=== PATIENT | female | born 1970 | race Caucasian/White ===

== ENCOUNTER 2018-05-04 05:27 | Emergency (ER) | payer BC ==
[~2018-05-04] VITALS: Ht 152.4 cm; Wt 60.6 kg
[2018-05-04 05:30] VITALS: BP 127/85
--- NOTE | 2018-05-04 05:35 | NUR ---
Pt taken to bed 12.
--- NOTE | 2018-05-04 05:36 | NUR ---
PT PRESENTED ER WITH C/O PAIN TO THE ABDOMEN X 2 WEEKS. PT DENIES FEVER BUT HAS SOME N/V. NO PAIN TO PALPATION. ACTIVE BOWL SOUNDS IN ALL 4 Q. NO MEDICAL HX AND KNA.SKIN IS PINK/WARM/DRY; AAOX4 . PATIENT STATES PAIN OF 8/10 AT THIS TIME; VSS; PATIENT POSITIONED FOR COMFORT; HOB ELEVATED; BEDRAILS UP X2; BED DOWN. ER MD MADE AWARE OF PT STATUS.
[2018-05-04] MEDS ORDERED: PROCHLORPERAZINE 10 MG/2 ML VIAL IM ONE (06:10)
[2018-05-04] MEDS ORDERED: diphenhydrAMINE 50 MG/ML VIAL IM ONE (06:10)
--- NOTE | 2018-05-04 06:55 | NUR ---
PT SITTING UP IN BED, VITALS STABLE.
--- NOTE | 2018-05-04 07:15 | NUR ---
RECEIVED REPORT FROM ZACH JOHNSON.
[2018-05-04 07:36] VITALS: BP 118/76
--- NOTE | 2018-05-04 07:36 | NUR ---
Patient discharged with v/s stable. Written and verbal after care instructions given and explained. Patient alert, oriented and verbalized understanding of instructions. Ambulatory with steady gait. All questions addressed prior to discharge. ID band removed. Patient advised to follow up with PMD. Rx of MACROBID, MINERAL OIL, ZOFRAN & TRAMADOL given. Patient educated on indication of medication including possible reaction and side effects. Opportunity to ask questions provided and answered.
== END 2018-05-04 07:36 | disposition home or self-care (01) ==
LOC: MED 05:27
DX: K59.00 Constipation, unspecified (principal); R51 Headache; N39.0 Urinary tract infection, site not specified
CPT/HCPCS: 74022; 81025; 96372; 99284; J0780; J1200

== ENCOUNTER 2022-06-23 15:23 | Emergency (ER) | payer BC ==
[~2022-06-23] VITALS: Ht 147.3 cm; Wt 59.4 kg
[2022-06-23 15:39] VITALS: BP 155/90
--- NOTE | 2022-06-23 15:41 | NUR ---
Patient ambulated to bed 5.
--- NOTE | 2022-06-23 15:56 | NUR ---
Dr. Lu evaluating patient at bedside.
[2022-06-23] MEDS ORDERED: MECLIZINE 25 MG TAB PO ONE (16:05)
[2022-06-23] MEDS ORDERED: NACL 0.9% 1,000 ML IV ONE (16:05)
--- NOTE | 2022-06-23 16:15 | NUR ---
52 y/o female bib self with c/o dizziness, nausea and vomiting x 2 days. Per patient, she has been having the dizziness for 6 months intermittently. Patient states there was an increase in dizziness and nausea over the past 2 days. Denies any sick contacts, fever, chills or SOB. Denies pain. Denies taking any medication for symptoms. Medical History: Pre-Diabetes, HDL NKDA
--- NOTE | 2022-06-23 16:23 | NUR ---
IV started, blood work obtained, handed blood samples to CPT. Ludmila
[2022-06-23 16:47] LABS: BASOPHILS % (AUTO) 0.1 % (0.0-2.0); EOSINOPHILS # (AUTO) 0.1 K/uL (0-0.4); EOSINOPHILS % (AUTO) 0.7 % (0.0-4.0); HEMATOCRIT 38.5 % (36-48); LYMPHOCYTES % (AUTO) 12.5 % (20.5-51.1); MEAN CORPUSCULAR HEMOGLOBIN 30 pg (27-31); MEAN CORPUSCULAR HGB CONC 34 g/dL (33-37); MEAN CORPUSCULAR VOLUME 89.8 fL (80-94); MONOCYTES # (AUTO) 0.4 K/uL (0.8-1.0); MONOCYTES % (AUTO) 4.3 % (1.7-9.3); NEUTROPHILS # (AUTO) 6.7 K/uL (1.8-7.7); NEUTROPHILS % (AUTO) 82.4 % (42.2-75.2); PLATELET COUNT (AUTO) 265 K/uL (140-450); RED BLOOD CELL COUNT(AUTO) 4.29 MIL/uL (4.20-5.40); RED CELL DISTRIBUTION WIDTH 13.9 % (11.6-13.7); WHITE BLOOD COUNT (AUTO) 8.2 K/uL (4.8-10.8)
[2022-06-23 17:07] LABS: ALBUMIN 3.9 g/dL (3.4-5.0); ANION GAP 9.9 (8-16); ASPARTATE AMINOTRANSFERASE 20 U/L (15-37); CARBON DIOXIDE 27.9 mmol/L (21-32); CHLORIDE 106 mmol/L (98-107); CREATININE 0.6 mg/dL (0.6-1.3); GFR ARICAN-AMERICAN 134 mL/min (>90); GLUCOSE 114 mg/dL (74-106); MAGNESIUM 1.9 mg/dL (1.8-2.4); POTASSIUM 3.8 mmol/L (3.5-5.1); SODIUM SERUM 140 mmol/L (136-145); TOTAL BILIRUBIN 0.3 mg/dL (0.0-1.0); UREA NITROGEN, BLOOD 13 mg/dL (7-18)
--- NOTE | 2022-06-23 17:25 | NUR ---
Patient ambulated to restroom.
[2022-06-23] MEDS ORDERED: MECL-303 PO (18:14)
[2022-06-23] MEDS ORDERED: ONDA-188 PO (18:29)
[2022-06-23 18:33] VITALS: BP 135/80
--- NOTE | 2022-06-23 18:33 | NUR ---
Patient discharged with v/s stable. Written and verbal after care instructions given. Patient alert, oriented and verbalized understanding of instructions. Ambulatory with steady gait. All questions addressed prior to discharge. ID band removed. Patient advised to follow up with PMD. Rx of MECLIZINE given. Opportunity to ask questions provided and answered.
== END 2022-06-23 18:33 | disposition home or self-care (01) ==
LOC: MED 15:23
DX: R42 Dizziness and giddiness (principal)
CPT/HCPCS: 36415; 80053; 83735; 84484; 85025; 96360; 99285; J7030; J8597; 93005